=== PATIENT | female | born 1965 | race Asian ===

== ENCOUNTER 2016-12-22 10:25 | Emergency (ER) | payer OTHER ==
[~2016-12-22] VITALS: Ht 149.9 cm; Wt 94.5 kg
[~2016-12-22 10:25] MED LIST: BENICAR HCT 401 EAC1 PO
[2016-12-22] MEDS ORDERED: KEFLEX500 MG PO (12:10)
[2016-12-22 12:29] VITALS: BP 122/67
== END 2016-12-22 12:31 | disposition home or self-care (01) ==
LOC: EME 10:25
PROC: 0HQFXZZ Repair Right Hand Skin, External Approach (ICD-10-PCS; principal; 2016-12-22)
DX: S61.216A Laceration without foreign body of right little finger without damage to nail, initial encounter (principal); W22.8XXA Striking against or struck by other objects, initial encounter; Y93.89 Activity, other specified; Y99.0 Civilian activity done for income or pay
CPT/HCPCS: 73140; 99281; 99283